=== PATIENT | female | born 1965 | race Caucasian/White ===

== ENCOUNTER 2016-11-02 18:42 | Emergency (ER) | payer SELFPAY ==
[2016-11-02 18:45] VITALS: BP 168/83; PULSE 68; RESP 24; TEMP 98.3; O2SAT 98
[2016-11-02] MEDS ORDERED: Oxycodone/Acetaminophen 5/325 mg Tab ONE (18:49)
[2016-11-02] MEDS ORDERED: Oxycodone/Acetaminophen 5/325 mg Tab PO STA (18:56)
--- NOTE | 2016-11-02 19:28 | C.PDOC ---
History Of Present Illness 51 y/o female brought to ED by EMS with complaints of midline lower back pinching pain after slipping on stairs and landing on back [employer]. Patient states she was able to get up on her own. Patient reports pain radiating to leg. Patient states she took Aleve [employer] with no improvement and denies loc, head trauma or any other complaints at this time. Time Seen by Provider: 11/02/16 18:58 Chief Complaint (Nursing): Hip Pain History Per: Patient History/Exam Limitations: no limitations Onset/Duration Of Symptoms: Hrs Current Symptoms Are (Timing): Still Present Additional History Per: EMS - Hip Description Of Injury: Fell Past Medical History Reviewed: Historical Data, Nursing Documentation, Vital Signs Vital Signs: Last Vital Signs Temp 98.3 F 11/02/16 18:43 Pulse 68 11/02/16 18:43 Resp 24 11/02/16 18:43 BP 168/83 H 11/02/16 18:43 Pulse Ox 98 11/04/16 08:30 Surgical History: Cholecystectomy Family History: States: Unknown Family Hx - Social History Hx Alcohol Use: Yes Hx Substance Use: No - Immunization History Hx Influenza Vaccination: No Review Of Systems Constitutional: Negative for: Weakness Musculoskeletal: Positive for: Arm Pain (recent surgery right arm for tendon repair, in sling), Back Pain. Negative for: Neck Pain Neurological: Negative for: Weakness, Numbness, Headache, Dizziness Physical Exam - Physical Exam Appears: Other (In pain) Skin: Normal Color, Warm, Ecchymosis (lumbar spine area) Head: Atraumatic, Normacephalic Eye(s): bilateral: Normal Inspection Oral Mucosa: Moist Neck: Normal ROM, No Midline Cervical Tenderness Rectal: Rectal Tone Back: Vertebral Tenderness (lumbar spine area with ecchymosis noted), Other ( paralumbar and midline Tenderness) Extremity: No Tenderness (fromat bilateral hips and knees, no pelvis instability or tenderness), Capillary Refill (<2 seconds), Other (Right arm in orthopedic device s/p surgery x1 week ago) Extremity: Bilateral: Hips Non-Tender, No Pedal Edema, Pelvis-Stable Pulses: Left Dorsalis Pedis: Normal, Right Dorsalis Pedis: Normal Neurological/Psych: Oriented x3, Normal Speech, Normal Cognition, Normal Motor, Normal Sensation ED Course And Treatment O2 Sat by Pulse Oximetry: 98 (RA) Pulse Ox Interpretation: Normal Medical Decision Making Medical Decision Making: pt with no fx noted on xray, feeling dec pain after perocoet. pt able to stand and walk with some discomfort. will d/c home with recommendaitn that pt continues aleve and percocet as she has prescribed for arm pain, along with cold compresses to area. Disposition Counseled Patient/Family Regarding: Studies Performed, Diagnosis, Need For Followup - Disposition Disposition: HOME/ ROUTINE Disposition Time: 21:07 Condition: IMPROVED Additional Instructions: Follow up with your orthopedist in a few days. COld compresses to area several times a day. Take Percocet and Aleve as prescribed. Return to ER for any worse symptoms, Instructions: Acute Low Back Pain (ED) Forms: Gen Discharge Inst Polish Print Language: YAKUT - Clinical Impression Clinical Impression: Fall (on) (from) other stairs and steps, initial encounter, Lumbar pain - Scribe Statement The provider has reviewed the documentation as recorded by the Pedroibjermaine Marie All medical record entries made by the Pedroibjermaine were at my direction and personally dictated by me. I have reviewed the chart and agree that the record accurately reflects my personal performance of the history, physical exam, medical decision making, and the department course for this patient. I have also personally directed, reviewed, and agree with the discharge instructions and disposition.
--- NOTE | 2016-11-03 11:39 | RAD ---
PROCEDURE: Radiographs of the Lumbar Spine. HISTORY: s/p fall, hit back on steps COMPARISON: No prior. FINDINGS: BONES: Normal alignment. No listhesis. No fracture. DISC SPACES: Loss in height of the L4-5 intervertebral disc space with vacuum disc phenomenon, subchondral sclerosis and marginal osteophytes. Consistent with degenerative disc disease. Remaining disc spaces are maintained in height. OTHER FINDINGS: None. IMPRESSION: No acute fracture. Degenerative disc disease at L4-5.
== END 2016-11-02 21:13 | disposition home or self-care (01) ==
LOC: C.ER 18:42
DX: M54.5 Low back pain (principal); W10.9XXA Fall (on) (from) unspecified stairs and steps, initial encounter; Y92.9 Unspecified place or not applicable

== ENCOUNTER 2017-08-10 12:39 | Emergency (ER) | payer SELFPAY ==
[2017-08-10 12:47] VITALS: BP 123/81; PULSE 81; RESP 16; TEMP 97.9; O2SAT 99
[2017-08-10] MEDS ORDERED: Lidocaine 5% Patch TD STA (13:28)
--- NOTE | 2017-08-10 13:32 | C.PDOC ---
History Of Present Illness 52 year old female presents to the ED c/o right lower back pain for the past 3 days after lifting while at work. Patient reports lower back pain occasionally radiates to her right buttock, pain worsens bending down. Patient reports limited relief with Aleve. Patient states having prior history of lower back pain " but haven't had it in a while". Patient denies numbness, weakness, injury , fall, trauma, bowel/urinary incontinence, saddle anesthesia. R LOWER BACK PAIN X 3 DAYS. ONSET AFTER LIFTING WHILE @ WORK. R LOWER BACK OCC RADIATION R BUTTOCK. WORSE W BENDING. NO WEAK/NUMB. LIMITED RELIEF W ALEVE. PS PRIOR HO L LOWER BACK PAIN "BUT HAVENT HAD IN A LONG TIME". EXAM MILD DIST NONTOXIC BACK +TEND RLB W SPASM; NO LS TEND. LIMTIED FLEX. NEURO INTACT SKIN WNL REMAINDER NEG Time Seen by Provider: 08/10/17 13:16 Chief Complaint (Nursing): Back Pain History Per: Patient History/Exam Limitations: no limitations Onset/Duration Of Symptoms: Days Current Symptoms Are (Timing): Still Present Quality Of Discomfort: "Pain" Previous Symptoms: Back Pain Exacerbating Factor(s): Movement Recent travel outside of the [place]: No Additional History Per: Patient Past Medical History Reviewed: Historical Data, Nursing Documentation, Vital Signs Vital Signs: Last Vital Signs Temp 97.9 F 08/10/17 12:44 Pulse 81 08/10/17 12:44 Resp 16 08/10/17 12:44 BP 123/81 08/10/17 12:44 Pulse Ox 99 08/10/17 13:32 - Medical History PMH: Back Problems Surgical History: Cholecystectomy Family History: States: Unknown Family Hx - Social History Hx Alcohol Use: Yes Hx Substance Use: No - Immunization History Hx Influenza Vaccination: No Review Of Systems Constitutional: Negative for: Fever, Chills Cardiovascular: Negative for: Chest Pain Respiratory: Negative for: Shortness of Breath Gastrointestinal: Negative for: Abdominal Pain Genitourinary: Negative for: Incontinence Musculoskeletal: Positive for: Back Pain Skin: Negative for: Rash Neurological: Negative for: Weakness, Numbness Physical Exam - Physical Exam Appears: Non-toxic, In Acute Distress Skin: Normal Color, Warm, Dry Head: Atraumatic, Normacephalic Eye(s): bilateral: Normal Inspection Neck: Normal ROM, Supple Chest: Symmetrical Cardiovascular: Rhythm Regular, No Murmur Respiratory: Normal Breath Sounds, No Rales, No Rhonchi, No Wheezing Gastrointestinal/Abdominal: Soft, No Tenderness, No Guarding, No Rebound Back: No Vertebral Tenderness, Other (tenderness RLB with spasm) Extremity: Normal ROM (Limited flexion of Hip), No Tenderness, No Swelling Neurological/Psych: Oriented x3, Normal Motor, Normal Sensation Gait: Steady ED Course And Treatment O2 Sat by Pulse Oximetry: 99 (ON RA) Pulse Ox Interpretation: Normal Medical Decision Making Medical Decision Making: Impression: lower back pain Plan: * Decadron 10 mg PO * Flexeril 10 mg PO * Lidoderm 5% 1 ea TD * Motrin 600 mg PO * Tylenol 650 mg PO Disposition Counseled Patient/Family Regarding: Diagnosis, Need For Followup, Rx Given - Disposition Referrals: YOUR,PMD [Other] Disposition: HOME/ ROUTINE Disposition Time: 13:31 Condition: IMPROVED Prescriptions: Acetaminophen [Tylenol 325mg tab] 650 mg PO Q6 #30 tab Cyclobenzaprine [Flexeril] 10 mg PO TID #15 tab Ibuprofen [Motrin] 600 mg PO Q6 #30 tab Lidocaine 5% [Lidoderm] 1 ea TD PRN PRN #10 patch PRN Reason: Pain, Moderate (4-7) Instructions: Low Back Pain (DC) Forms: [facility] (Eritrean), Work Excuse - Clinical Impression Clinical Impression: Low back strain - Scribe Statement The provider has reviewed the documentation as recorded by the Scribe Asaf Yoon All medical record entries made by the Scribe were at my direction and personally dictated by me. I have reviewed the chart and agree that the record accurately reflects my personal performance of the history, physical exam, medical decision making, and the department course for this patient. I have also personally directed, reviewed, and agree with the discharge instructions and disposition.
[2017-08-10] MEDS ORDERED: Lidocaine 5% Patch TD ONE (13:35)
== END 2017-08-10 13:44 | disposition home or self-care (01) ==
LOC: C.ER 12:39
DX: S39.012A Strain of muscle, fascia and tendon of lower back, initial encounter (principal); X50.9XXA Other and unspecified overexertion or strenuous movements or postures, initial encounter; Y92.89 Other specified places as the place of occurrence of the external cause; Y99.0 Civilian activity done for income or pay
CPT/HCPCS: 99283; J8540

== ENCOUNTER 2018-09-01 10:43 | Emergency (ER) | payer SELFPAY ==
[2014-03-13 15:15] VITALS: BMI 22.1
[2018-09-01 10:53] VITALS: RESP 18; O2SAT 99
[2018-09-01] MEDS ORDERED: Amoxicillin-Clav 875-125 mg Tab PO STA (11:38)
[2018-09-01] MEDS ORDERED: Amoxicillin-Clav 875-125 mg Tab PO ONE (11:45)
[2018-09-01 12:03] VITALS: BP 158/86; PULSE 72; TEMP 98.1
--- NOTE | 2018-09-01 12:03 | C.PDOC ---
Chief Complaint (Nursing): ENT Problem Past Medical History Vital Signs: Last Vital Signs Temp 97.9 F 09/01/18 10:48 Pulse 75 09/01/18 10:48 Resp 18 09/01/18 10:48 BP 167/91 H 09/01/18 10:48 Pulse Ox 99 09/01/18 10:48 Primary Care Provider: Shaik Catsellon - Medical History PMH: Back Problems Surgical History: Cholecystectomy Denies: Pacemaker - [facility] Procedures COLONOSCOPY (03/16/14) ESOPHAGOGASTRODUODENOSCOPY [EGD] W/CLOSED BIOPSY (03/16/14) Family History: States: Unknown Family Hx - Social History Hx Alcohol Use: Yes (SOCIALLY) Hx Substance Use: No - Immunization History Hx Tetanus Toxoid Vaccination: No Hx Influenza Vaccination: Yes Hx Pneumococcal Vaccination: No ED Course And Treatment O2 Sat by Pulse Oximetry: 99 Disposition Counseled Patient/Family Regarding: Diagnosis, Need For Followup, Rx Given - Disposition Referrals: Shaik Castellon MD [Family Provider] - Disposition Time: 12:00 Additional Instructions: Continue meds as prescribed Rest and Hydration Follow up with PMD in 1-2 days Return to the ED if symptoms worsen Prescriptions: Acetaminophen [Tylenol] 650 mg PO Q8 PRN #30 capsule PRN Reason: Pain, Moderate (4-7) Amoxicillin/Clavulanate [Augmentin 875 MG-125 MG] 1 tab PO BID #19 tab Instructions: Ear Infections (Otitis Media) (DC) Forms: [facility] (Welsh), Work Excuse - Clinical Impression Clinical Impression: Right ear pain, Right otitis media
--- NOTE | 2018-09-01 12:05 | C.PDOC ---
History Of Present Illness 53-year-old female presents to the ED for evaluation of right ear pain associated with headache for 4 days. Patient states she noticed feeling like her ear was "clogged" on and tried taking Aleve to help her pain without any improvement. Patient grew concerned after she began experiencing post- auricular pain and headache. Patient rates her pain 7/10 and denies fever, chills, vision change, otorrhea, tinnitus, vertigo, nasal drainage, cough, nausea, vomiting. Chief Complaint (Nursing): ENT Problem History Per: Patient History/Exam Limitations: None Onset/Duration Of Symptoms: Days (4) Current Symptoms Are (Timing): Still Present Pain Scale Rating Of: 7 Past Medical History Reviewed: Historical Data, Nursing Documentation, Vital Signs Vital Signs: Last Vital Signs Temp 97.9 F 09/01/18 10:48 Pulse 75 09/01/18 10:48 Resp 18 09/01/18 10:48 BP 167/91 H 09/01/18 10:48 Pulse Ox 99 09/01/18 10:48 Primary Care Provider: Shaik Castellon - Medical History PMH: Back Problems Surgical History: Cholecystectomy Denies: Pacemaker - [facility] Procedures COLONOSCOPY (03/16/14) ESOPHAGOGASTRODUODENOSCOPY [EGD] W/CLOSED BIOPSY (03/16/14) Family History: States: Unknown Family Hx - Social History Hx Alcohol Use: Yes (SOCIALLY) Hx Substance Use: No - Immunization History Hx Tetanus Toxoid Vaccination: No Hx Influenza Vaccination: Yes Hx Pneumococcal Vaccination: No Review Of Systems Constitutional: Negative for: Fever, Chills Eyes: Negative for: Vision Change ENT: Positive for: Ear Pain (right ). Negative for: Nose Discharge Respiratory: Negative for: Cough Neurological: Positive for: Headache Physical Exam - Physical Exam Appears: Non-toxic, No Acute Distress Skin: Normal Color, Warm, Dry Head: Atraumatic, Normacephalic Eye(s): bilateral: Normal Inspection, PERRL, EOMI Ear(s): Left: Normal, Right: Other (TM erythema with slight bulging. nontender. no post-auricular erythema ) Nose: Normal, No Discharge Oral Mucosa: Moist Throat: Normal, No Erythema, No Exudate Neck: Supple Chest: Symmetrical, No Deformity, No Tenderness Cardiovascular: Rhythm Regular, No Murmur Respiratory: Normal Breath Sounds, No Rales, No Rhonchi, No Wheezing Extremity: Normal ROM, Capillary Refill (less than 2 seconds ) Neurological/Psych: Oriented x3, Normal Speech, Normal Cognition ED Course And Treatment O2 Sat by Pulse Oximetry: 99 (on RA) Pulse Ox Interpretation: Normal Medical Decision Making Medical Decision Making: Impression: 53 year old female with right otitis media Plan: * Tylenol PO * Augmentin PO * reassess and disposition Progress: Tylenol PO and Augmentin PO given. On reassessment, patient is resting comfortably, showing no signs of distress, and is stable for discharge. Patient is advised to follow up with PMD within 1-2 days for further evaluation. Disposition - Disposition Referrals: Shaik Catsellon MD [Family Provider] - Disposition: HOME/ ROUTINE Disposition Time: 12:00 Condition: STABLE Additional Instructions: Continue meds as prescribed Rest and Hydration Follow up with PMD in 1-2 days Return to the ED if symptoms worsen Prescriptions: Acetaminophen [Tylenol] 650 mg PO Q8 PRN #30 capsule PRN Reason: Pain, Moderate (4-7) Amoxicillin/Clavulanate [Augmentin 875 MG-125 MG] 1 tab PO BID #19 tab Instructions: Ear Infections (Otitis Media) (DC) Forms: [facility] (Maldivian), Work Excuse - Clinical Impression Clinical Impression: Right ear pain, Right otitis media - PA / [employer] / Resident Statement MD/DO has reviewed & agrees with the documentation as recorded. - Scribe Statement The provider has reviewed the documentation as recorded by the Scribe (Juanita Albert) All medical record entries made by the Scribe were at my direction and personally dictated by me. I have reviewed the chart and agree that the record accurately reflects my personal performance of the history, physical exam, medical decision making, and the department course for this patient. I have also personally directed, reviewed, and agree with the discharge instructions and disposition.
== END 2018-09-01 12:09 | disposition home or self-care (01) ==
LOC: C.ER 10:43
DX: H66.91 Otitis media, unspecified, right ear (principal); H92.01 Otalgia, right ear